=== PATIENT | male | born 1950 | race Caucasian/White ===

== ENCOUNTER → 2024-08-27 | Outpatient (CLI) | payer OTHER, SELFPAY ==
[2024-08-27 14:28] LABS: Basophils # (Auto) 0.1 Thou/mm3 (0.0-0.2); Basophils % (Auto) 1 % (0-2.5); Eosinophils # (Auto) 0.1 Thou/mm3 (0.0-0.5); Eosinophils % (Auto) 2 % (0-10); Hematocrit 46.2 % (41.0-53.0); Hemoglobin 15.5 g/dL (13.5-16.0); Immature Granulocytes % (Auto) 0 % (0-0); Immature Granulocytes Auto 0.03 Thou/mm3 (0.00-0.00); Lymphocytes # (Auto) 1.7 Thou/mm3 (1.0-4.8); Lymphocytes % (Auto) 23 % (10-50); Mean Corpuscular HGB Conc 33.5 g/dl (31.0-37.0); Mean Corpuscular Hemoglobin 31.8 pg (25.0-35.0); Mean Corpuscular Volume 95 fL (80-100); Monocytes # (Auto) 0.5 Thou/mm3 (0.0-0.8); Monocytes % (Auto) 7 % (0-12); Neutrophils # (Auto) 4.9 Thou/mm3 (1.8-7.7); Neutrophils % (Auto) 67 % (37-80); Nucleated Red Blood Cell % 0 /100 WBC (0); Platelet Count 160 Thou/mm3 (140-440); RDW Standard Deviation 47.6 fL (35.1-43.9); Red Blood Count 4.88 Miln/mm3 (4.50-5.90); White Blood Count 7.3 Thou/mm3 (3.8-10.6)
[2024-08-27 14:58] LABS: Anion Gap 7 (7-16); BUN/Creatinine Ratio 17 Ratio (12-20); Blood Urea Nitrogen 22 mg/dL (9-23); Calcium 9.6 mg/dL (8.3-10.6); Carbon Dioxide 31.5 mMol/L (20.0-31.0); Cardiac Risk Estimate 2.8 RATIO (4.0-6.7); Chloride 107 mMol/L (98-107); Cholesterol 136 mg/dL (132-200); Creatinine (Component) 1.3 mg/dL (0.6-1.3); Glucose 135 mg/dL (74-106); HDL Cholesterol 48 mg/dL (40-60); LDL Cholesterol,Calculated 66 mg/dL (0-130); Magnesium 2.1 mg/dL (1.6-2.6); Osmolality,Calculated 294 (275-295); Potassium 3.7 mMol/L (3.4-5.1); Sodium 145 mMol/L (136-145); Triglycerides 108 mg/dL (30-150); eGFR 58 See Note
== END | disposition home or self-care (01) ==
LOC: COPL 13:05
PROVIDERS: PCP Internal Medicine; Referring Provider Internal Medicine Cardiovascular Disease; Visit Provider Internal Medicine Cardiovascular Disease
DX: I11.0 Hypertensive heart disease with heart failure (principal); I50.22 Chronic systolic (congestive) heart failure; E78.5 Hyperlipidemia, unspecified
CPT/HCPCS: 36415; 80048; 80061; 83735; 85025

== ENCOUNTER 2024-12-02 18:33 | Emergency (ER) | payer OTHER, SELFPAY ==
[2024-12-02 18:33] VITALS: PULSE 115; RESP 20; O2SAT 97
[2024-12-02 18:42] VITALS: BP 122/86; PULSE 103; RESP 20; TEMP 36.8; O2SAT 96; BMI 28.7
[2024-12-02 19:16] VITALS: PULSE 115; RESP 20; O2SAT 97
--- NOTE | 2024-12-02 20:09 | XR_ITS ---
Examination: AP chest single view Technique one AP portable semiupright chest single view Date and time: December 02, 2024 2100 hours Comparison February 07, 2024 INDICATIONS: Shortness of breath today. FINDINGS: Normal heart size No lobar pneumonia No pulmonary edema Pulmonary nodule right upper lobe, at least 10 mm, please see the CT chest report February 02, 2024 IMPRESSION: No pneumonia or pulmonary edema 10 mm pulmonary nodule right upper lobe Please see the CT chest report February 02, 2024
[2024-12-02 20:39] LABS: Basophils # (Auto) 0.1 Thou/mm3 (0.0-0.2); Basophils % (Auto) 1 % (0-2.5); Eosinophils # (Auto) 0.1 Thou/mm3 (0.0-0.5); Eosinophils % (Auto) 1 % (0-10); Hematocrit 39.5 % (41.0-53.0); Hemoglobin 13.9 g/dL (13.5-16.0); Immature Granulocytes % (Auto) 0 % (0-0); Immature Granulocytes Auto 0.03 Thou/mm3 (0.00-0.00); Lymphocytes # (Auto) 1.7 Thou/mm3 (1.0-4.8); Lymphocytes % (Auto) 20 % (10-50); Mean Corpuscular HGB Conc 35.2 g/dl (31.0-37.0); Mean Corpuscular Hemoglobin 31.7 pg (25.0-35.0); Mean Corpuscular Volume 90 fL (80-100); Monocytes # (Auto) 0.8 Thou/mm3 (0.0-0.8); Monocytes % (Auto) 10 % (0-12); Neutrophils # (Auto) 5.7 Thou/mm3 (1.8-7.7); Neutrophils % (Auto) 68 % (37-80); Nucleated Red Blood Cell % 0 /100 WBC (0); Platelet Count 141 Thou/mm3 (140-440); RDW Standard Deviation 44.4 fL (35.1-43.9); Red Blood Count 4.38 Miln/mm3 (4.50-5.90); White Blood Count 8.3 Thou/mm3 (3.8-10.6)
[2024-12-02 21:08] LABS: Troponin I < 0.020 ng/mL (0.0-0.045)
[2024-12-02 21:21] LABS: B-Type Natriuretic Peptide 503 pg/mL (0-100)
[2024-12-02 22:05] VITALS: BP 131/105; PULSE 94; RESP 19; TEMP 36.6; O2SAT 96
--- NOTE | 2024-12-03 00:27 | PD.EDSOB ---
ED SOB =RME/HPI General Chief Complaint: Shortness of Breath/Dyspnea Stated Complaint: SOB Time Seen by Provider: 12/02/24 19:18 Arrival date/time: 12/02/24 18:33 Limitations: no limitations RME / HPI RME / HPI Narrative: Dr. Ball's Main ED Evaluation: 74yo male with a history of CVA, CAD s/p stent, CHF, HTN, HLD, COPD, aFib BIBA from home presents to the ED for a chief complaint of shortness of breath x 3-4 days. Patient states he was sick of it and was unable to tolerate his worsening shortness of breath, so he came in for evaluation. Patient reports having BLE swelling for months . Patient denies any fever, chills, N/V/D or any other associated symptoms. Related Data Home Medications ?Medication ?Instructions ?Recorded ?Confirmed atorvastatin 80 mg tablet 80 mg PO QDAY 12/15/18 04/23/22 Previous Rx's ?Medication ?Instructions ?Recorded apixaban 5 mg tablet (Eliquis) 5 mg PO BID #60 tabs 02/10/24 furosemide 40 mg tablet 40 mg PO QAM #30 tabs 02/11/24 metoprolol succinate 100 mg 100 mg PO BID #60 tabs 02/11/24 tablet,extended release 24 hr empagliflozin 10 mg tablet 10 mg PO QDAY #30 tabs 02/13/24 (Jardiance) Allergies Allergy/AdvReac Type Severity Reaction Status Date / Time bee venom protein (honey bee) Allergy Intermediate Anaphylaxis Verified 12/16/18 09:26 Review of Systems Review of Systems Systems Reviewed: All systems reviewed, normal except as documented Past Medical History Past Medical History NEUROLOGIC: Positive Cerebrovascular Accident; Negative Neurological Disorders CARDIAC: Positive Cardiac Disorders, Myocardial Infarction, Hypercholesterolemia and Hypertension; Negative Congestive Heart Failure RESPIRATORY: Positive Chronic Obstructive Pulmonary Disease (COPD); Negative Asthma GASTROINTESTINAL: Negative Gastrointestinal Disorders GENITOURINARY: Negative Genitourinary Disorders or Renal Disease MUSCULOSKELETAL: Positive Arthritis and Fractures; Negative Musculoskeletal Disorders ENDOCRINE: Negative Endocrine Disorders, Diabetes Mellitus Type 1 or Diabetes Mellitus Type 2 HEMATOLOGIC: Negative Blood Disorders or Sickle Cell Disease OTHER HISTORY: Positive Chicken Pox, Measles and Mumps; Negative Autoimmune Disease or Cancer Family History FAMILY HISTORY: Negative Family Neurologic Problems, Family Psychiatric Problems, Family Respiratory Disorders, Family Cardiac Disorders, Family Gastrointestinal Problems, Family Cancer, Family Surgery or Family Anesthesia Reaction Surgical History SURGICAL: Positive Coronary Stent Social History SMOKING STATUS: Current some day smoker SUBSTANCE USE: marijuana and amphetamines ED Exam General Limitations: Present no limitations General appearance: Present alert and in no apparent distress Head Head exam: Present atraumatic Eye Eye exam: Present normal appearance, PERRL and EOMI ENT ENT exam: Present normal exam, normal oropharynx and mucous membranes moist Neck Neck exam: Present normal inspection, full ROM and trachea midline Chest Chest inspection: Present normal inspection and symmetric chest wall rise Respiratory Respiratory exam: Present other (rhonchi bilaterally) Cardiovascular Cardiovascular exam: Present regular rate, normal rhythm and normal heart sounds Abdominal Exam Abdominal exam: Present soft and normal bowel sounds Extremities Exam Extremities exam: Present normal inspection and full ROM Back Exam Back exam: Present normal inspection and full ROM Neurological Exam Neurological exam: Present alert, oriented X3 and CN II-XII intact Psychiatric Psychiatric exam: Present normal affect and normal mood Skin Skin exam: Present warm, dry, intact and normal color Course Course Course Narrative: CXR is ordered for determining the etiology of shortness of breath. Quality Measures none Orders Category Date Time Status CXRP [XR chest 1V portable] Stat Exams 12/02/24 20:09 Completed BNP [B-Type Natriuretic Peptide] Stat Lab 12/02/24 20:21 Completed CBC Stat Lab 12/02/24 20:21 Completed Troponin I Stat Lab 12/02/24 20:21 Completed Troponin I Stat Lab 12/03/24 01:58 Completed Furosemide Inj [Lasix Inj] Med 12/03/24 01:17 Discontinued 40 mg IVP X1 ONE Reevaluation(s) Reevaluation #1: Patient is now asymptomatic at this time and feels significantly better. Patient states he urinated a lot . He is stable to be discharged home. Time: 05:00 Vital Signs Vital signs: Vital Signs Temperature 98.2 F 12/02/24 18:42 Pulse Rate 103 H 12/02/24 18:42 Respiratory Rate 20 12/02/24 18:42 Blood Pressure 122/86 H 12/02/24 18:42 Pulse Oximetry (%) 96 12/02/24 18:42 Oxygen Delivery Method Nasal Cannula 12/02/24 18:42 Oxygen Flow Rate 4 12/02/24 18:42 Shortness of Breath / Dyspnea MDM Narrative MDM Narrative:: Scribe Attestation: 12/03/24 - Lucy Esposito am scribing for and in the presence of Dr. Ball. Patient data External records reviewed:: [facility] previous records (Per chart review, patient was admitted here on 02/02/24 for aFib RVR.) Clinical information provided by:: patient and EMS Social determinants that could affect healthcare access:: none Patient has the following chronic illnesses:: CVA, CAD s/p stent, CHF, HTN, HLD, COPD, aFib How is presenting disease/condition affected by chronic disease/condition?: exacerbated by Evaluation data The following diagnostics were reviewed and interpreted by me:: lab results and radiology exam(s) Lab and/or radiology exams considered but not ordered:: none Interpretation Summary: CBC is normal, Initial and Repeat Troponins are normal, BNP 503, according to my interpretation. ---- [facility] Report Signed Patient: ADDY MONDRAGON [facility]. Record#: [id number] Birthdate: 1950 Age/Sex: 74 / M Location: [facility] Attending Dr: Ordering Physician: Karen Munroe MD Date of Service: 12/02/24 Procedure(s): XR chest 1V portable Accession Number(s): [id number] cc: Cash Shipley MD; Thomas Brooks MD; Karen Munroe MD~ Examination: AP chest single view Technique one AP portable semiupright chest single view Date and time: December 02, 2024 2100 hours Comparison February 07, 2024 INDICATIONS: Shortness of breath today. FINDINGS: Normal heart size No lobar pneumonia No pulmonary edema Pulmonary nodule right upper lobe, at least 10 mm, please see the CT chest report February 02, 2024 IMPRESSION: No pneumonia or pulmonary edema 10 mm pulmonary nodule right upper lobe Please see the CT chest report February 02, 2024 Dictated By: Thomas Brooks MD Signed By: <Electronically signed by Thomas Brooks MD in OV> 12/02/24 2856 Medications / Prescriptions Medications or Prescriptions considered but not ordered:: none Medication administrations:: Medication Administration History Discontinued Medications Furosemide (Furosemide Inj 10 Mg/Ml 4ml Vial) 40 mg IVP X1 ONE Stop: 12/03/24 01:18 Last Admin: 12/03/24 01:53 Dose: 40 mg Documented By: CG see above Consultations Consultation(s) initiated? (list below): No Diagnosis Shortness of Breath Differential Diagnosis: community acquired pneumonia, pulmonary embolism and other (CHF exacerbation, COPD exacerbation) Most likely diagnosis given after review of the tests above:: see clinical impression below Admission Indicated Admission indicated?: not indicated Admission Request Was there a request for admission?: No Disposition Plan Disposition Plan: Discharge Discharge Attestation Discharge Attestation: The patient and all family members were given an opportunity to ask questions and understood the discharge instructions. Discharge instructions specifically effects, indications for sooner follow up or return to the emergency department, and the expected course of current diagnosis. Patient condition: Stable Discharge Plan Plan Patient Disposition: HOME (Self Care) Patient condition on transfer: Stable Prescriptions/Referrals Prescriptions/Med Rec: No Action atorvastatin 80 mg Tablet 80 mg PO QDAY Eliquis 5 mg tablet 5 mg PO BID Qty: 60 0RF furosemide 40 mg tablet 40 mg PO QAM Qty: 30 0RF metoprolol succinate 100 mg tablet extended release 24 hr 100 mg PO BID Qty: 60 0RF Jardiance 10 mg tablet 10 mg PO QDAY Qty: 30 0RF Referrals: Cash Shipley MD [Primary Care Provider] - In 1 week Problem List Clinical Impression: Shortness of breath Patient/Caregiver Discharge Instructions Education Materials: ED Shortness of Breath (Dyspnea) Additional Instructions: Follow-up with your primary care provider in the next 48 hours. Continue taking your medications at home as prescribed. Return to the ED for any worsening symptoms or as needed. Print Language: Kosovan Stand Alone Forms: Debbie Award Info., Patient Portal Info Letter
[2024-12-03 01:53] VITALS: BP 120/86; PULSE 82
[2024-12-03] MEDS: FUROSEMIDE INJ 10 MG/ML 4ML VIAL 40 MG IVP (01:53)
[2024-12-03 02:48] LABS: Troponin I < 0.020 ng/mL (0.0-0.045)
[2024-12-03 02:49] VITALS: BP 146/95; PULSE 90; RESP 19; TEMP 36.5; O2SAT 95
[2024-12-03 04:56] VITALS: BP 125/99; PULSE 105; RESP 18; TEMP 36.5; O2SAT 98
[2024-12-03 06:44] VITALS: BP 113/88; PULSE 85; RESP 18; O2SAT 98
== END 2024-12-03 06:45 | disposition home or self-care (01) ==
PROVIDERS: Emergency Provider Emergency Medicine; PCP Internal Medicine
DX: R06.02 Shortness of breath (principal); R91.1 Solitary pulmonary nodule
CPT/HCPCS: 36415; 71045; 83880; 84484; 85025; 96374; 99284; J1938

== ENCOUNTER → 2024-12-24 | Outpatient (CLI) | payer OTHER, SELFPAY ==
[2024-12-24 12:07] LABS: Basophils # (Auto) 0.1 Thou/mm3 (0.0-0.2); Basophils % (Auto) 1 % (0-2.5); Eosinophils # (Auto) 0.1 Thou/mm3 (0.0-0.5); Eosinophils % (Auto) 2 % (0-10); Hematocrit 43.7 % (41.0-53.0); Hemoglobin 14.6 g/dL (13.5-16.0); Immature Granulocytes % (Auto) 1 % (0-0); Immature Granulocytes Auto 0.03 Thou/mm3 (0.00-0.00); Lymphocytes # (Auto) 1.3 Thou/mm3 (1.0-4.8); Lymphocytes % (Auto) 21 % (10-50); Mean Corpuscular HGB Conc 33.4 g/dl (31.0-37.0); Mean Corpuscular Hemoglobin 31.6 pg (25.0-35.0); Mean Corpuscular Volume 95 fL (80-100); Monocytes # (Auto) 0.7 Thou/mm3 (0.0-0.8); Monocytes % (Auto) 10 % (0-12); Neutrophils # (Auto) 4.3 Thou/mm3 (1.8-7.7); Neutrophils % (Auto) 67 % (37-80); Nucleated Red Blood Cell % 0 /100 WBC (0); Platelet Count 161 Thou/mm3 (140-440); RDW Standard Deviation 46.1 fL (35.1-43.9); Red Blood Count 4.62 Miln/mm3 (4.50-5.90); White Blood Count 6.5 Thou/mm3 (3.8-10.6)
[2024-12-24 12:19] LABS: Glucose Estimated Average 126 mg/dL (80-131)
--- NOTE | 2024-12-24 12:26 | XR_ITS ---
Examination: PA lateral chest 2 views TECHNIQUE: Upright PA lateral chest 2 views Date and time: December 24, 2024 1423 hours Comparison December 02, 2024 INDICATIONS: Shortness of breath beginning 2 months ago FINDINGS: Normal heart size Mild ectasia thoracic aorta. 15 mm pulmonary nodule right upper lobe, please see the CT chest report February 02, 2024 No pneumonia or pulmonary edema IMPRESSION: No pneumonia or pulmonary edema
[2024-12-24 12:31] LABS: Alanine Aminotransferase 24 U/L (10-49); Albumin, Serum 4.4 gm/dL (3.4-4.8); Alkaline Phosphatase 92 U/L (46-116); Anion Gap 8 (7-16); Aspartate Amino Transferase 20 U/L (0-34); BUN/Creatinine Ratio 22 Ratio (12-20); Bilirubin,Total 1.6 mg/dL (0.3-1.2); Blood Urea Nitrogen 26 mg/dL (9-23); Calcium 9.4 mg/dL (8.3-10.6); Calcium (Corrected) 9.4 mg/dL (8.5-10.1); Carbon Dioxide 31.7 mMol/L (20.0-31.0); Cardiac Risk Estimate 2.7 RATIO (4.0-6.7); Chloride 105 mMol/L (98-107); Cholesterol 118 mg/dL (132-200); Creatinine (Component) 1.2 mg/dL (0.6-1.3); Free T4 (Free Thyroxine) 1.55 ng/dL (0.89-1.76); Globulin 2.2 gm/dL (2.3-3.5); Glucose 139 mg/dL (74-106); HDL Cholesterol 44 mg/dL (40-60); LDL Cholesterol,Calculated 54 mg/dL (0-130); Osmolality,Calculated 295 (275-295); Potassium 3.8 mMol/L (3.4-5.1); Sodium 145 mMol/L (136-145); Thyroid Stimulating Hormone 6.24 uIU/mL (0.55-4.78); Total Protein 6.6 gm/dL (5.7-8.2); Triglycerides 99 mg/dL (30-150); Vitamin D 25 Hydroxy Total 23.2 ng/mL (7.3-40.2); eGFR > 60 See Note
[2024-12-24 12:33] LABS: B-Type Natriuretic Peptide 568 pg/mL (0-100)
== END | disposition home or self-care (01) ==
LOC: CDIM 11:29
PROVIDERS: PCP Internal Medicine; Referring Provider Internal Medicine; Visit Provider Internal Medicine
DX: R91.1 Solitary pulmonary nodule (principal); I77.810 Thoracic aortic ectasia
CPT/HCPCS: 36415; 71046; 80053; 80061; 82306; 83036; 83880; 84439; 84443; 85025

== ENCOUNTER 2025-01-28 17:49 | Emergency (ER) | payer OTHER, SELFPAY ==
[2025-01-28 17:54] VITALS: BP 111/77; PULSE 121; RESP 18; TEMP 36.6; O2SAT 94; BMI 28.7
[2025-01-28 18:08] VITALS: PULSE 115; RESP 14; O2SAT 97
[2025-01-28 18:15] VITALS: BMI 28.1
[2025-01-28 18:16] VITALS: BP 122/94; PULSE 107; RESP 13; TEMP 36.5; O2SAT 96
--- NOTE | 2025-01-28 18:27 | PD.EDSOB ---
ED SOB =RME/HPI General Chief Complaint: Shortness of Breath/Dyspnea Stated Complaint: SHORTNESS OF BREATH Time Seen by Provider: 01/28/25 18:35 Arrival date/time: 01/28/25 17:49 RME / HPI RME / HPI Narrative: This section includes all my notes and documentations, including HPI, PE, and ED course. Rene Marroquin MD HPI: 74 y/o male with Hx of [place], CVA, HTN, and COPD BIBA from home presents with worsening cough, productive cough, purulent sputum, and dyspnea. For about a week. Denies supplemental O2 at home. Denies fever and chest pain. No other complaints. ROS: All negative except as documented in HPI. Physical Exam: General: Alert and oriented. No acute distress noted. Eyes: Conjunctivae and lids clear. ENT: No nasal congestion. Neck: Supple. Heart: RRR. Lungs: No respiratory distress. Mildly decreased air movement with wheezing. Abdomen: Soft and nontender. Skin: Warm and dry. Neuro: Alert and oriented X 3. I reviewed EMS notes. I reviewed all diagnostic test results: My interpretation of the EKG is: Atrial fibrillation (91 bpm) with nonspecific ST-T changes. Rene Marroquin MD My interpretation of the chest x-ray is: NAD. My review of the Venous Doppler US report is: NAD. My review of the Chest CTA report is: NAD. Blood tests and urine tests unremarkable. Covid/Influenza: Negative. At this point, diagnoses include: COPD exacerbation. Treatment here included: Duoneb 3 mL, SoluMedrol 125 mg, Zithromax 250 mg, Rocephin 1G, and oral metoprolol 50 mg for high BP. Significant improvement noted. Recommended outpatient care. Based on my best medical judgment, made decision no further evaluation or treatment indicated at this time. Patient understands and agrees to the discharge instructions customized and printed, see below. Discharge instructions from Dr. Marroquin: --No physical exertion for 3 days to help rest the lungs. ?No smoking or exposure to smoking or pets or dust or cold or humidity. --Zithromax and cefdinir to kill the germs causing the COPD bronchitis. --Prednisone to help decrease the swelling in the airways. --Albuterol 2 puffs every 4-6 hours for 3 days to help keep the airways open. Then as needed for cough or shortness of breath. --See a private doctor on 01/31/2025 for recheck and further care. Ask to review all test results and official radiology reports, to make sure you receive all necessary follow-ups and monitoring. Ask for help until you are completely better. --Seek immediate medical care with worsening or with any concerns. Rene Marroquin MD Related Data Home Medications ?Medication ?Instructions ?Recorded ?Confirmed atorvastatin 80 mg tablet 80 mg PO QDAY 12/15/18 04/23/22 Previous Rx's ?Medication ?Instructions ?Recorded apixaban 5 mg tablet (Eliquis) 5 mg PO BID #60 tabs 02/10/24 furosemide 40 mg tablet 40 mg PO QAM #30 tabs 02/11/24 metoprolol succinate 100 mg 100 mg PO BID #60 tabs 02/11/24 tablet,extended release 24 hr empagliflozin 10 mg tablet 10 mg PO QDAY #30 tabs 02/13/24 (Jardiance) albuterol sulfate 90 mcg/actuation 2 puff inhalation Q6H PRN 01/28/25 aerosol inhaler shortness of breath or wheezing #8.5 grams azithromycin 500 mg tablet 500 mg PO QDAY 3 days #3 tabs 01/28/25 (Zithromax TRI-KRISTEL) cefdinir 300 mg capsule 300 mg PO BID #14 caps 01/28/25 prednisone 50 mg tablet 50 mg PO QDAY #3 tabs 01/28/25 Allergies Allergy/AdvReac Type Severity Reaction Status Date / Time bee venom protein (honey bee) Allergy Intermediate Anaphylaxis Verified 01/28/25 18:16 Review of Systems Review of Systems Systems Reviewed: All systems reviewed, normal except as documented Past Medical History Past Medical History NEUROLOGIC: Positive Cerebrovascular Accident CARDIAC: Positive Cardiac Disorders, Myocardial Infarction, Hypercholesterolemia and Hypertension RESPIRATORY: Positive Chronic Obstructive Pulmonary Disease (COPD) MUSCULOSKELETAL: Positive Arthritis and Fractures OTHER HISTORY: Positive Chicken Pox, Measles and Mumps Surgical History SURGICAL: Positive Coronary Stent Social History SUBSTANCE USE: marijuana and amphetamines ED Exam Narrative Physical exam: Refer to HPI Course Quality Measures none Orders Category Date Time Status Bedside COVID-19 Antigen Test NOW Care 01/28/25 18:42 Completed Bedside Influenza A&B Antigen Test NOW Care 01/28/25 18:[address] Screening NOW Care 01/28/25 20:14 Completed EKG (ED ONLY) *Do not use* NOW Care 01/28/25 18:43 Completed Saline [Insert IV] NOW Care 01/28/25 18:42 Completed Straight [In and Out Catheter] X1 Care 01/28/25 18:[address] angio chest Stat Exams 01/28/25 20:14 Completed EKG (ED Only) Stat Exams 01/28/25 18:43 Draft US venous doppler LE BI Stat Exams 01/28/25 20:14 Completed XR chest 1V portable Stat Exams 01/28/25 18:43 Completed ABG [Arterial Blood Gas] Stat Lab 01/28/25 19:43 Completed BNP [B-Type Natriuretic Peptide] Stat Lab 01/28/25 19:01 Completed Bilirubin,Direct Stat Lab 01/28/25 19:01 Completed Blood Culture (Lab) Stat Lab 01/28/25 19:01 Received CBC Stat Lab 01/28/25 19:01 Completed CMP [Comprehensive Metabolic Panel] Stat Lab 01/28/25 19:01 Completed CRP [C-Reactive Protein] Stat Lab 01/28/25 19:01 Completed D-Dimer Stat Lab 01/28/25 19:01 Completed ESR [Sed Rate (ESR)] Stat Lab 01/28/25 19:01 Completed Free T4 (Free Thyroxine) Stat Lab 01/28/25 19:01 Completed Lactate (Lactic Acid) Stat Lab 01/28/25 19:01 Completed Magnesium Stat Lab 01/28/25 19:01 Completed PT [Prothrombin Time with INR] Stat Lab 01/28/25 20:16 Completed PTT [Partial Thromboplastin Time] Stat Lab 01/28/25 20:16 Completed Procalcitonin Stat Lab 01/28/25 19:01 Completed TSH [Thyroid Stimulating Hormone] Stat Lab 01/28/25 19:01 Completed Troponin I Stat Lab 01/28/25 19:01 Completed UA, C/S IF [Urinalysis, C/S if Indicated] Stat Lab 01/28/25 20:55 Completed Albuterol/Ipratr Rt Jessica [Duoneb Rt Jessica] Med 01/28/25 18:42 Discontinued 3 ml INH X1 ONE Azithromycin Po [Zithromax PO] Med 01/28/25 22:54 Discontinued 500 mg PO X1 ONE MethylPREDNISolone.* [SoluMEDROL Inj] Med 01/28/25 18:42 Discontinued 125 mg IVP X1 ONE Metoprolol Tartrate [Lopressor] Med 01/29/25 00:09 Discontinued 50 mg PO X1 ONE cefTRIAXone/D5w 1gm IV premix [Rocephin/D5w 1gm IV Med 01/28/25 22:54 Discontinued premix] 1 gm in 50 ml IV X1 Vital Signs Vital signs: Vital Signs Temperature 97.8 F 01/28/25 17:54 Pulse Rate 121 H 01/28/25 17:54 Respiratory Rate 18 01/28/25 17:54 Blood Pressure 111/77 01/28/25 17:54 Pulse Oximetry (%) 94 L 01/28/25 17:54 Oxygen Delivery Method Nasal Cannula 01/28/25 17:54 Oxygen Flow Rate 2 01/28/25 17:54 Shortness of Breath / Dyspnea MDM Narrative MDM Narrative:: Scribe Attestation: IYeni, am scribing for and in the presence of Dr. Marroquin. Provider Notation: Although this document has been carefully reviewed, there may still be some phonetic and other typographical errors.? These errors are purely grammatical due to imperfections in the software program and should not be construed in any way to? compromise the substance of the patient's medical care during this visit. 74 y/o male with Hx of [place], CVA, HTN, and COPD BIBA from home presents with worsening cough, productive cough, purulent sputum, and dyspnea. For about a week. Denies supplemental O2 at home. Denies fever and chest pain. No other complaints. Patient data External records reviewed:: [facility] previous records (Reviewed prior ED records from 12/03/24. Patient was seen for Shortness of breath.) and EMS form Clinical information provided by:: patient and EMS Social determinants that could affect healthcare access:: none Patient has the following chronic illnesses:: Cerebrovascular Accident, Myocardial Infarction, Hypercholesterolemia, Hypertension, Chronic Obstructive Pulmonary Disease (COPD), Arthritis How is presenting disease/condition affected by chronic disease/condition?: exacerbated by Evaluation data The following diagnostics were reviewed and interpreted by me:: lab results, radiology exam(s) and EKG tracing(s) (My interpretation of the EKG is: Atrial fibrillation (91 bpm) with nonspecific ST-T changes. Rene Marroquin MD) Lab and/or radiology exams considered but not ordered:: None Interpretation Summary: I reviewed all diagnostic test results: My interpretation of the EKG is: Atrial fibrillation (91 bpm) with nonspecific ST-T changes. Rene Marroquin MD My interpretation of the chest x-ray is: NAD. My review of the Venous Doppler US report is: NAD. My review of the Chest CTA report is: NAD. Blood tests and urine tests unremarkable. Covid/Influenza: Negative. Medications / Prescriptions Medications or Prescriptions considered but not ordered:: None Medication administrations:: Medication Administration History Discontinued Medications Albuterol/Ipratropium (Albuterol/Ipratropium (Duoneb) Rt Jessica 3 Ml Nebu) 3 ml INH X1 ONE Stop: 01/28/25 18:43 Last Admin: 01/28/25 19:14 Dose: 3 ml Documented By: DM Azithromycin (Azithromycin 250 Mg Tablet) 500 mg PO X1 ONE Stop: 01/28/25 22:55 Last Admin: 01/28/25 23:35 Dose: 500 mg Documented By: DT Ceftriaxone Sodium/Dextrose (Rocephin/D5w 1gm Iv Premix) 1 gm in 50 mls @ 100 mls/hr IV X1 ONE Stop: 01/28/25 23:23 Last Infusion: 01/29/25 00:05 Dose: Infused Documented By: Admin: 01/28/25 23:37 Dose: 100 mls/hr Documented By: DT Methylprednisolone Sodium Succinate (Methylprednisolone Sod Succ 62.5 Mg/Ml 2ml Vial) 125 mg IVP X1 ONE Stop: 01/28/25 18:43 Last Admin: 01/28/25 19:24 Dose: 125 mg Documented By: GM Metoprolol Tartrate (Metoprolol Tartrate 25 Mg Tablet) 50 mg PO X1 ONE Stop: 01/29/25 00:10 Last Admin: 01/29/25 00:32 Dose: 50 mg Documented By: DT Treatment here included: Duoneb 3 mL, SoluMedrol 125 mg, Zithromax 250 mg, Rocephin 1G, and oral metoprolol 50 mg for high BP. Consultations Consultation(s) initiated? (list below): No Diagnosis Shortness of Breath Differential Diagnosis: acute exacerbation of chronic obstructive airways disease, congestive heart failure, community acquired pneumonia and pulmonary embolism Most likely diagnosis given after review of the tests above:: COPD Exacerbation Admission Indicated Admission indicated?: not indicated Explain why admission is indicated or not indicated:: With significant improvement and no condition needing emergent intervention, there was no indication for admission. Admission Request Was there a request for admission?: No Disposition Plan Disposition Plan: Discharge Discharge Attestation Discharge Attestation: The patient and all family members were given an opportunity to ask questions and understood the discharge instructions. Discharge instructions specifically effects, indications for sooner follow up or return to the emergency department, and the expected course of current diagnosis. Patient condition: Stable Discharge Plan Plan Patient Disposition: HOME (Self Care) Prescriptions/Referrals Prescriptions/Med Rec: New prednisone 50 mg tablet 50 mg PO QDAY Qty: 3 0RF albuterol sulfate 90 mcg/actuation HFA aerosol inhaler 2 puff inhalation Q6H PRN (Reason: shortness of breath or wheezing) Qty: 8.5 0RF cefdinir 300 mg capsule 300 mg PO BID Qty: 14 0RF azithromycin [Zithromax TRI-KRISTEL] 500 mg tablet 500 mg PO QDAY 3 Days Qty: 3 0RF No Action atorvastatin 80 mg Tablet 80 mg PO QDAY Eliquis 5 mg tablet 5 mg PO BID Qty: 60 0RF furosemide 40 mg tablet 40 mg PO QAM Qty: 30 0RF metoprolol succinate 100 mg tablet extended release 24 hr 100 mg PO BID Qty: 60 0RF Jardiance 10 mg tablet 10 mg PO QDAY Qty: 30 0RF Referrals: Cash Shipley MD [Primary Care Provider] - In 1 week Problem List Clinical Impression: COPD exacerbation Patient/Caregiver Discharge Instructions Discharge Activity: activity as tolerated Education Materials: ED COPD Flare Additional Instructions: Discharge instructions from Dr. Marroquin: --No physical exertion for 3 days to help rest the lungs. ?No smoking or exposure to smoking or pets or dust or cold or humidity. --Zithromax and cefdinir to kill the germs causing the COPD bronchitis. --Prednisone to help decrease the swelling in the airways. --Albuterol 2 puffs every 4-6 hours for 3 days to help keep the airways open. Then as needed for cough or shortness of breath. --See a private doctor on 01/31/2025 for recheck and further care. Ask to review all test results and official radiology reports, to make sure you receive all necessary follow-ups and monitoring. Ask for help until you are completely better. --Seek immediate medical care with worsening or with any concerns. Print Language: Upper Sorbian Stand Alone Forms: Debbie Award Info., Patient Portal Info Letter
--- NOTE | 2025-01-28 18:43 | EKG_ITS ---
[facility] Test Date: 2025-01-28 Pat Name: ADDY MONDRAGON Department: Room: - Gender: Male Education Managers: : 1950 Requested By: Rene Mckoy Order Number: [id number] Reading MD: Rene Mckoy Measurements Intervals [place] Rate: 91 P: TX: QRS: 23 QRSD: 106 T: 183 QT: 392 QTc: 483 Interpretive Statements ATRIAL FLUTTER/TACHYCARDIA ST DEVIATION AND MODERATE T-WAVE ABNORMALITY, CONSIDER ANTEROLATERAL ISCHEMIA [-0.1+ mV T-WAVE IN V3-V6] Compared to ECG 02/07/2024 12:11:32 T-wave abnormality now present Possible ischemia now present Atrial fibrillation no longer present Myocardial infarct finding no longer present /store/S0/[id number]/ecg/[id number].pdf
--- NOTE | 2025-01-28 18:43 | XR_ITS ---
Examination: AP chest single view TECHNIQUE: AP portable upright chest single view. Date and time: January 28, 2025 1910 hours. INDICATIONS: Chest pain and shortness of breath today. FINDINGS: Mild prominence of ventricle. Mild vascular congestion. No lobar pneumonia or pulmonary edema. Again noted 15 mm pulmonary nodule right upper lobe, please see the CT chest report February 02, 2024 IMPRESSION: No pneumonia or pulmonary edema
[2025-01-28] MEDS: ALBUTEROL/IPRATROPIUM (Duoneb) RT SOL 3 ML NEBU INH (19:14)
[2025-01-28 19:15] VITALS: PULSE 114; RESP 12; O2SAT 96
[2025-01-28 19:22] LABS: Lactate (Lactic Acid) 1.4 mMol/L (0.4-2.0)
[2025-01-28] MEDS: MethylPREDNISolone SOD SUCC 62.5 MG/ML 2ML VIAL 125 MG IVP (19:24)
[2025-01-28 19:34] LABS: Sed Rate (ESR) 21 mm/hr (0-20)
[2025-01-28 19:51] LABS: Base Excess 4 (-3-3); HCO3 26 mEq/L (20-26); Inspired Oxygen, FIO2 21 %; O2 Saturation 98 % (91-98); PCO2 31 mmHg (32.0-48.0); PO2 88 mmHg (83-108); pH, Arterial 7.54 (7.35-7.45)
[2025-01-28 19:52] LABS: Allen Test Performed/OK; Puncture Site Right Radial
[2025-01-28 19:56] LABS: D-Dimer 1130 ng/mL (<600)
[2025-01-28 20:11] LABS: Alanine Aminotransferase 35 U/L (10-49); Albumin, Serum 4.2 gm/dL (3.4-4.8); Albumin/Globulin Ratio 1.8 (1.2-2.2); Alkaline Phosphatase 102 U/L (46-116); Anion Gap 9 (7-16); Aspartate Amino Transferase 21 U/L (0-34); BUN/Creatinine Ratio 17 Ratio (12-20); Bilirubin,Direct 0.7 mg/dL (0.0-0.3); Bilirubin,Total 1.6 mg/dL (0.3-1.2); Blood Urea Nitrogen 19 mg/dL (9-23); Calcium 9.4 mg/dL (8.3-10.6); Calcium (Corrected) 9.4 mg/dL (8.5-10.1); Carbon Dioxide 28.5 mMol/L (20.0-31.0); Chloride 106 mMol/L (98-107); Creatinine (Component) 1.1 mg/dL (0.6-1.3); Estimated Creatinine Clearance 68.2 mL/min (>60); Free T4 (Free Thyroxine) 1.37 ng/dL (0.89-1.76); Globulin 2.4 gm/dL (2.3-3.5); Glucose 130 mg/dL (74-106); Magnesium 2.0 mg/dL (1.6-2.6); Osmolality,Calculated 289 (275-295); Potassium 3.6 mMol/L (3.4-5.1); Procalcitonin 0.06 ng/ml (0.0-0.49); Sodium 143 mMol/L (136-145); Thyroid Stimulating Hormone 3.10 uIU/mL (0.55-4.78); Total Protein 6.6 gm/dL (5.7-8.2); Troponin I < 0.020 ng/mL (0.0-0.045); eGFR > 60 See Note
--- NOTE | 2025-01-28 20:14 | XR_ITS ---
Examination: Venous duplex lower extremity sonogram, bilateral. Date and time of exam: January 28, 2025 202 hours INDICATIONS: Bilateral leg swelling beginning 2 weeks ago Technique: Multiple sonographic images of the deep venous system have been obtained. B-mode/2-D grayscale imaging of vascular structures and Doppler spectral analysis (waveforms) and color performed Both legs are examined. Findings: Deep venous systems do not demonstrate abnormal echogenicity. All visualized deep veins exhibit compressibility. All visualized deep veins exhibit augmentation. Impression: Negative for deep vein thrombosis
--- NOTE | 2025-01-28 20:14 | XR_ITS ---
Examination: CTA chest with intravenous contrast 2-D reconstructions 3-D reconstructions, vascular Date and time of exam: January 28, 2025 1006 hours Comparison February 02, 2024 INDICATIONS: Shortness of breath chest pain and elevated d-dimer today CTDI: vol (mGy) 18.59 DLP: (mGycm) 36 Technique: Multiple axial sections of the thorax have been obtained. 3 mm slice thickness, from below the hemidiaphragms to above the apices of the lungs. Mediastinal and lung density settings have been obtained. 2-D sagittal and coronal reconstructions. 3-D angiographic renderings, 3-D volume renderings, 3D post processing, vascular maximum intensity projections obtained. Contrast administered is 100 cc Isovue-370. Low dose protocols were performed. One or more of the following dose reduction techniques were used; automated exposure control, adjustment of the mA and/or KV according to patient size, use of iterative reconstruction technique. Findings: AP dimension ascending thoracic aorta 3.9 cm No pulmonary artery filling defects Mild to moderate enlargement cardiac contour Left anterior descending coronary artery calcification No mediastinal lymphadenopathy Stable 15 mm pulmonary nodule right upper lobe No pneumonia or pulmonary edema No visualized liver splenic lesion Partial visualization 5 cm upper pole left renal cyst IMPRESSION: Negative for pulmonary artery emboli No mediastinal lymphadenopathy. No pneumonia or pulmonary edema or pleural disease
[2025-01-28 20:21] LABS: B-Type Natriuretic Peptide 451 pg/mL (0-100)
[2025-01-28 20:22] LABS: Basophils # (Auto) 0.1 Thou/mm3 (0.0-0.2); Basophils % (Auto) 1 % (0-2.5); Eosinophils # (Auto) 0.1 Thou/mm3 (0.0-0.5); Eosinophils % (Auto) 2 % (0-10); Hematocrit 38.7 % (41.0-53.0); Hemoglobin 13.6 g/dL (13.5-16.0); Immature Granulocytes Auto 0.02 Thou/mm3 (0.00-0.00); Lymphocytes # (Auto) 1.6 Thou/mm3 (1.0-4.8); Lymphocytes % (Auto) 23 % (10-50); Mean Corpuscular HGB Conc 35.1 g/dl (31.0-37.0); Mean Corpuscular Hemoglobin 32.2 pg (25.0-35.0); Mean Corpuscular Volume 92 fL (80-100); Monocytes # (Auto) 0.8 Thou/mm3 (0.0-0.8); Monocytes % (Auto) 12 % (0-12); Neutrophils # (Auto) 4.3 Thou/mm3 (1.8-7.7); Neutrophils % (Auto) 63 % (37-80); Nucleated Red Blood Cell # 0.00 Thou/mm3 (0.00-0.00); Nucleated Red Blood Cell % 0 /100 WBC (0); Platelet Count 127 Thou/mm3 (140-440); RDW Standard Deviation 44.7 fL (35.1-43.9); Red Blood Count 4.23 Miln/mm3 (4.50-5.90); White Blood Count 6.9 Thou/mm3 (3.8-10.6)
[2025-01-28 21:01] LABS: INR 1.1 (0.9-1.3); Partial Thromboplastin Time 30.2 Seconds (22.0-36.0); Prothrombin Time 11.9 Seconds (9.0-12.2)
[2025-01-28 21:35] LABS: C-Reactive Protein 0.5 mg/dL (0.0-0.9)
[2025-01-28 21:39] LABS: Collection Type, Urine Clean Catch
[2025-01-28 22:00] LABS: Bilirubin,Urine Negative (Negative); Blood,Urine Negative (Negative); Clarity,Urine Clear (Clear/Hazy); Color,Urine Yellow (Lt Yel-Yel); Culture Indicated,Urine Not Indicated; Glucose, Urine Negative (Negative); Hyaline Casts,Urine < 1 /hpf (0-1); Ketones,Urine Negative (Negative); Leukocyte Esterase,Urine Negative (Negative); Nitrite,Urine Negative (Negative); PH,Urine 6.0 (5.0-7.0); Protein,Urine Negative (Neg - Trace); RBC,Urine 3 /hpf (0-3); Specific Gravity,Urine 1.019 (1.001-1.035); Squamous Epithelial Cell,Urine < 1 /hpf (0-5); Urobilinogen,Urine 6.0 mg/dL (0.0-1.0); WBC,Urine 1 /hpf (0-5)
[2025-01-28 22:28] VITALS: BP 141/110; PULSE 116; RESP 16; TEMP 36.4; O2SAT 96
[2025-01-28] MEDS: AZITHROMYCIN 250 MG TABLET 500 MG PO (23:35)
[2025-01-28] MEDS: cefTRIAXone/D5w 1gm IV premix 1 GM/50 ML BAG IV (23:37)
[2025-01-29 00:07] VITALS: BP 139/118; PULSE 117; RESP 18; TEMP 36.4; O2SAT 95
--- NOTE | 2025-01-29 00:10 | PC.NURSE ---
DR. ROBERTSON MADE AWARE OF PT BLOOD PRESSURE AND HEART RATE. VERBAL ORDER RECEIVED FOR METOPROLOL 50MG PO X1.
[2025-01-29 00:32] VITALS: BP 147/118; PULSE 116
[2025-01-29] MEDS: METOPROLOL TARTRATE 25 MG TABLET 50 MG PO (00:32)
[2025-01-29 01:48] VITALS: BP 141/108; PULSE 111; RESP 18; O2SAT 96
== END 2025-01-29 01:53 | disposition home or self-care (01) ==
PROVIDERS: Emergency Provider Emergency Medicine; PCP Internal Medicine
DX: J44.1 Chronic obstructive pulmonary disease with (acute) exacerbation (principal); M79.89 Other specified soft tissue disorders; R94.31 Abnormal electrocardiogram [ECG] [EKG]
CPT/HCPCS: 36415; 36600; 71045; 71275; 80053; 81001; 82248; 82803; 83605; 83735; 83880; 84145; 84439; 84443; 84484; 85025; 85379; 85610; 85652; 85730; 86140; 87040; 87400; 87811; 93005; 93970; 94640; 96365; 96374; 99283; A4649; A9270; J0696; J2919; Q9967

== ENCOUNTER 2025-05-07 16:01 | Emergency (ER) | payer OTHER, SELFPAY ==
[2025-05-07 16:07] VITALS: BP 127/93; PULSE 136; RESP 20; TEMP 36.7; O2SAT 94; BMI 27.8
--- NOTE | 2025-05-07 16:13 | EKG_ITS ---
[facility] Test Date: 2025-05-07 Pat Name: ADDY MONDRAGON Department: Room: - Gender: Male Supervisor Grading: : [phone] Requested By: Rickie Michel Order Number: [id number] Reading MD: Rickie Michel Measurements Intervals [place]ge[place] Rate: 133 P: MT: QRS: 45 QRSD: 123 T: 184 QT: 349 QTc: 520 Interpretive Statements ATRIAL FLUTTER/TACHYCARDIA WITH RAPID VENTRICULAR RESPONSE MODERATE INTRAVENTRICULAR CONDUCTION DELAY [110+ ms QRS DURATION] ST DEVIATION AND MODERATE T-WAVE ABNORMALITY, CONSIDER LATERAL ISCHEMIA [-0.1+ mV T-WAVE IN I/aVL/V5/V6] Compared to ECG 01/28/2025 18:04:54 Intraventricular conduction delay now present T-wave abnormality still present Possible ischemia still present /store/S0/[id number]/ecg/[id number].pdf
--- NOTE | 2025-05-07 16:13 | XR_ITS ---
EXAMINATION: AP chest single view TECHNIQUE: AP portable semiupright chest single view Date and time: May 07, 2025, 1714 hours, comparison January 28, 2025 INDICATIONS: Shortness of breath today. FINDINGS: Mild heart failure. Mild enlargement cardiac contour Prominent vascular congestion, suspicious for early edema of the lung bases The osseous structures are intact IMPRESSION: Early heart failure
--- NOTE | 2025-05-07 16:14 | PD.EDADULT ---
ED General RME/HPI General Chief complaint: Shortness of Breath/Dyspnea Stated complaint: SOB Time Seen by Provider: 05/07/25 16:12 Arrival date/time: 05/07/25 16:01 CC: Shortness of breath HPI onset approximately 1 hour ago. Patient stated he is shortness of breath came with cough and he has been coughing up yellow to white phlegm. EMS report oxygen saturations of 94%. The patient stopped smoking 1 year ago. Patient denies chest pain difficulty breathing fever. No other complaints EMS reports 4 L oxygen when administered which improved his oxygen saturations to 94% and the patient feels better . Related Data Home Medications ?Medication ?Instructions ?Recorded ?Confirmed atorvastatin 80 mg tablet 80 mg PO QDAY 12/15/18 04/23/22 Previous Rx's ?Medication ?Instructions ?Recorded apixaban 5 mg tablet (Eliquis) 5 mg PO BID #60 tabs 02/10/24 furosemide 40 mg tablet 40 mg PO QAM #30 tabs 02/11/24 metoprolol succinate 100 mg 100 mg PO BID #60 tabs 02/11/24 tablet,extended release 24 hr empagliflozin 10 mg tablet 10 mg PO QDAY #30 tabs 02/13/24 (Jardiance) albuterol sulfate 90 mcg/actuation 2 puff inhalation Q6H PRN 01/28/25 aerosol inhaler shortness of breath or wheezing #8.5 grams cefdinir 300 mg capsule 300 mg PO BID #14 caps 01/28/25 prednisone 50 mg tablet 50 mg PO QDAY #3 tabs 01/28/25 furosemide 40 mg tablet (Lasix) 40 mg PO QAM #20 tabs 05/07/25 Allergies Allergy/AdvReac Type Severity Reaction Status Date / Time bee venom protein (honey bee) Allergy Intermediate Anaphylaxis Verified 05/07/25 16:41 Review of Systems Review of Systems Narrative Review of Systems: GEN: No fever, no chills, no weight loss EYES: No discharge, no visual changes, no pain HEENT: No ear pain, no congestion, no sore throat PULM: + shortness of breath, no cough, no congestion CV: No chest pain, no dyspnea on exertion, no palpitations GI: No nausea, no vomiting, no diarrhea, no pain, no constipation : No frequency, no urgency, no dysuria MUSC/SKEL: No joint pain, no back pain SKIN: No rash PSYCH: No hallucinations, no depression HEME/LYMPH: No easy bleeding or bruising tendencies NEURO: No weakness, no headache Past Medical History Past Medical History NEUROLOGIC: Positive Cerebrovascular Accident; Negative Neurological Disorders CARDIAC: Positive Cardiac Disorders, Myocardial Infarction, Hypercholesterolemia and Hypertension; Negative Congestive Heart Failure RESPIRATORY: Positive Chronic Obstructive Pulmonary Disease (COPD) and Asthma (copd) GASTROINTESTINAL: Negative Gastrointestinal Disorders GENITOURINARY: Negative Genitourinary Disorders or Renal Disease MUSCULOSKELETAL: Positive Arthritis and Fractures; Negative Musculoskeletal Disorders ENDOCRINE: Negative Endocrine Disorders, Diabetes Mellitus Type 1 or Diabetes Mellitus Type 2 HEMATOLOGIC: Negative Blood Disorders or Sickle Cell Disease OTHER HISTORY: Positive Chicken Pox, Measles and Mumps; Negative Autoimmune Disease or Cancer Family History FAMILY HISTORY: Negative Family Neurologic Problems, Family Psychiatric Problems, Family Respiratory Disorders, Family Cardiac Disorders, Family Gastrointestinal Problems, Family Cancer, Family Surgery or Family Anesthesia Reaction Surgical History SURGICAL: Positive Coronary Stent Social History SMOKING STATUS: Never smoker SUBSTANCE USE: marijuana and amphetamines ED Exam Narrative Physical exam: [General: Obese not in cot no acute distress Head normocephalic HEENT: Eyes pupils are PERRLA EOMs are intact mouth pink dry membranes uvula is midline swallow symmetrical phonation is normal all the substance of HEENT are within acceptable limits Neck is supple nontender Chest equal chest rise nontender to palpation Respiratory: Clear to auscultation no wheezes crackles or rubs CV: Rate rhythm is regular no murmurs rubs or clicks Abdomen is soft nontender no masses positive bowel sounds all 4 quadrants Back: No CVA tenderness no spinous process tenderness from cervical spine thoracic and lumbar spine Skin: Intact no petechiae rash induration ulceration or crepitus Extremities: Moving all extremity against resistance cap refill less than 2 seconds neurosensory intact Neuro: Awake alert oriented x3 Glascow coma 15 no focal deficits] Course Course Course Narrative: Patient progressively admits he ran out of his Lasix and stated shortness of breath. Oxygen saturations remained at 100% on room air for the past hour and a half at this time patient will be discharged home with Lasix. Quality Measures none Orders Category Date Time Status EKG (ED ONLY) *Do not use* NOW Care 05/07/25 16:13 Completed EKG (ED Only) Stat Exams 05/07/25 16:13 Draft XR chest 1V Stat Exams 05/07/25 16:13 Completed B-Type Natriuretic Peptide Stat Lab 05/07/25 16:46 Completed CBC Stat Lab 05/07/25 16:46 Completed Comprehensive Metabolic Panel Stat Lab 05/07/25 16:46 Completed Drug Screen,Urine Stat Lab 05/07/25 18:35 Completed LDH (Lactate Dehydrogenase) Stat Lab 05/07/25 16:46 Completed Magnesium Stat Lab 05/07/25 16:46 Completed Partial Thromboplastin Time Stat Lab 05/07/25 16:46 Completed Prothrombin Time with INR Stat Lab 05/07/25 16:46 Completed Troponin I Stat Lab 05/07/25 16:46 Completed Urinalysis, C/S if Indicated Stat Lab 05/07/25 18:35 Completed VBG [Venous Blood Gas] Stat Lab 05/07/25 16:46 Completed Albuterol/Ipratr Rt Jessica [Duoneb Rt Jessica] Med 05/07/25 16:25 Discontinued 3 ml INH X1 ONE Furosemide [Lasix Inj] Med 05/07/25 18:26 Discontinued 20 mg IVP X1 ONE Vital Signs Vital signs: Vital Signs Temperature 98.0 F 05/07/25 16:07 Pulse Rate 136 H 05/07/25 16:07 Respiratory Rate 20 05/07/25 16:07 Blood Pressure 127/93 H 05/07/25 16:07 Pulse Oximetry (%) 94 L 05/07/25 16:07 Oxygen Delivery Method Room Air 05/07/25 16:07 Discharge Plan Plan Patient Disposition: HOME (Self Care) Patient condition on transfer: Stable Prescriptions/Referrals Prescriptions/Med Rec: New furosemide [Lasix] 40 mg tablet 40 mg PO QAM Qty: 20 0RF No Action atorvastatin 80 mg Tablet 80 mg PO QDAY Eliquis 5 mg tablet 5 mg PO BID Qty: 60 0RF furosemide 40 mg tablet 40 mg PO QAM Qty: 30 0RF metoprolol succinate 100 mg tablet extended release 24 hr 100 mg PO BID Qty: 60 0RF Jardiance 10 mg tablet 10 mg PO QDAY Qty: 30 0RF prednisone 50 mg tablet 50 mg PO QDAY Qty: 3 0RF albuterol sulfate 90 mcg/actuation HFA aerosol inhaler 2 puff inhalation Q6H PRN (Reason: shortness of breath or wheezing) Qty: 8.5 0RF cefdinir 300 mg capsule 300 mg PO BID Qty: 14 0RF Referrals: Chandana Macdonald MD [Physician, Family Practice] - In 1 week No Primary/Family,Physician [Primary Care Provider] - In 1 week Problem List Clinical Impression: CHF (congestive heart failure), Hx of medication noncompliance Patient/Caregiver Discharge Instructions Education Materials: Heart Failure Dc Additional Instructions: Follow-up with your primary care doctor you need to stay on all your medications because of your heart condition. Print Language: Spanish Stand Alone Forms: Debbie Award Info., Work/School Release, Patient Portal Info Letter PA/SENIOR BIOINFORMATICS SPECIALIST Supervising Physician PA/ANDIE Supervising Physician: Rickie Tang ENP [facility] Clinical Information Provided by: patient and EMS Medical Records reviewed [facility] and EMS Meds/Rx considered, not ordered None Labs/Rad/Tests considered, not ordered None Chronic Illness/Social Conditions Explain: Hypertension stroke hyperlipidemia A-fib EKG Interpretation EKG #1: EKG Interpretation: EKG performed at 1710 shows a ventricular rate of 133 QRS of 123 QT QTc of 427 this is a flutter. When compared to an old EKG of both 2023 and 2024 there is no significant changes Labs Labs: interpreted by ct Lab(s) Interpretation(s): VBG shows a pH of 7.36 pCO2 of 47 pO2 of 36 O2 sats of 66% and base excess of 1 CMP shows no significant electrolyte imbalances other than elevated glucose at 161 no transaminitis T. bili at 2.1. Troponin at less than 0.020 BNP 1781. Medication Administration(s) Medication Administration History Discontinued Medications Albuterol/Ipratropium (Albuterol/Ipratropium (Duoneb) Rt Jessica 3 Ml Nebu) 3 ml INH X1 ONE Stop: 05/07/25 16:26 Last Admin: 05/07/25 16:45 Dose: 3 ml Documented By: LAURA Furosemide (Furosemide Inj 10 Mg/Ml Vial 2 Ml) 20 mg IVP X1 ONE Stop: 05/07/25 18:27 Last Admin: 05/07/25 18:45 Dose: 20 mg Documented By: VINCENT
[2025-05-07 16:35] VITALS: PULSE 130; RESP 30; O2SAT 84
[2025-05-07] MEDS: ALBUTEROL/IPRATROPIUM (Duoneb) RT SOL 3 ML NEBU INH (16:45)
[2025-05-07 16:49] VITALS: PULSE 134; RESP 22; O2SAT 99
[2025-05-07 16:53] LABS: Base Excess, Venous 1 (-3-3); O2 Saturation, Venous 66 % (96-97); PCO2, Venous 47 mmHg (36-56); PO2, Venous 36 mmHg (15-58); pH, Venous 7.36 (7.33-7.66)
[2025-05-07 16:58] LABS: Basophils # (Auto) 0.1 Thou/mm3 (0.0-0.2); Basophils % (Auto) 1 % (0-2.5); Eosinophils # (Auto) 0.0 Thou/mm3 (0.0-0.5); Eosinophils % (Auto) 0 % (0-10); Hematocrit 40.4 % (41.0-53.0); Hemoglobin 13.8 g/dL (13.5-16.0); Immature Granulocytes Auto 0.04 Thou/mm3 (0.00-0.00); Lymphocytes # (Auto) 1.5 Thou/mm3 (1.0-4.8); Lymphocytes % (Auto) 15 % (10-50); Mean Corpuscular HGB Conc 34.2 g/dl (31.0-37.0); Mean Corpuscular Hemoglobin 31.5 pg (25.0-35.0); Mean Corpuscular Volume 92 fL (80-100); Monocytes # (Auto) 0.9 Thou/mm3 (0.0-0.8); Monocytes % (Auto) 9 % (0-12); Neutrophils # (Auto) 7.6 Thou/mm3 (1.8-7.7); Neutrophils % (Auto) 75 % (37-80); Nucleated Red Blood Cell # 0.00 Thou/mm3 (0.00-0.00); Nucleated Red Blood Cell % 0 /100 WBC (0); Platelet Count 127 Thou/mm3 (140-440); RDW Standard Deviation 47.6 fL (35.1-43.9); Red Blood Count 4.38 Miln/mm3 (4.50-5.90); White Blood Count 10.2 Thou/mm3 (3.8-10.6)
[2025-05-07 17:13] LABS: Alanine Aminotransferase 21 U/L (10-49); Albumin, Serum 4.5 gm/dL (3.4-4.8); Albumin/Globulin Ratio 2.3 (1.2-2.2); Alkaline Phosphatase 93 U/L (46-116); Anion Gap 9 (7-16); Aspartate Amino Transferase 20 U/L (0-34); B-Type Natriuretic Peptide 1781 pg/mL (0-100); BUN/Creatinine Ratio 16 Ratio (12-20); Bilirubin,Total 2.1 mg/dL (0.3-1.2); Blood Urea Nitrogen 18 mg/dL (9-23); Calcium 9.2 mg/dL (8.3-10.6); Calcium (Corrected) 9.2 mg/dL (8.5-10.1); Carbon Dioxide 27.1 mMol/L (20.0-31.0); Chloride 107 mMol/L (98-107); Creatinine (Component) 1.1 mg/dL (0.6-1.3); Estimated Creatinine Clearance 69.9 mL/min (>60); Globulin 2.0 gm/dL (2.3-3.5); Glucose 161 mg/dL (74-106); LDH (Lactate Dehydrogenase) 188 U/L (120-246); Magnesium 2.3 mg/dL (1.6-2.6); Osmolality,Calculated 289 (275-295); Potassium 4.6 mMol/L (3.4-5.1); Sodium 143 mMol/L (136-145); Total Protein 6.5 gm/dL (5.7-8.2); Troponin I < 0.020 ng/mL (0.0-0.045); eGFR > 60 See Note
[2025-05-07 17:23] LABS: INR 1.1 (0.9-1.3); Partial Thromboplastin Time 29.9 Seconds (22.0-36.0); Prothrombin Time 11.3 Seconds (9.0-12.2)
[2025-05-07 18:34] VITALS: BP 129/107; PULSE 107; RESP 20; O2SAT 96
[2025-05-07 18:45] VITALS: BP 129/107; PULSE 107
[2025-05-07] MEDS: FUROSEMIDE INJ 10 MG/ML VIAL 2 ML 20 MG IVP (18:45)
[2025-05-07 18:59] LABS: Collection Type, Urine Clean Catch; Squamous Epithelial Cell,Urine 0 /hpf (0-5)
[2025-05-07 19:05] LABS: Bilirubin,Urine Negative (Negative); Blood,Urine 1+ (Negative); Clarity,Urine Clear (Clear/Hazy); Color,Urine Yellow (Lt Yel-Yel); Culture Indicated,Urine Not Indicated; Glucose, Urine Trace (Negative); Ketones,Urine Negative (Negative); Leukocyte Esterase,Urine Negative (Negative); Nitrite,Urine Negative (Negative); PH,Urine 6.0 (5.0-7.0); Protein,Urine Trace (Neg - Trace); RBC,Urine 2 /hpf (0-3); Specific Gravity,Urine 1.023 (1.001-1.035); Urobilinogen,Urine 3.0 mg/dL (0.0-1.0); WBC,Urine < 1 /hpf (0-5)
[2025-05-07 19:14] LABS: Amphetamine/Methamp Scrn,U Negative (Negative); Barbiturate Screen,Urine Negative (Negative); Benzodiazepines Screen,Urine Negative (Negative); Benzoylecgonine Screen, Ur Negative (Negative); Fentanyl Screen,Urine Negative (Negative); Opiate Screen,Urine Negative (Negative); THC Screen,Urine Negative (Negative)
== END 2025-05-07 20:13 | disposition home or self-care (01) ==
PROVIDERS: Registered Nurse General Practice; Emergency Provider Emergency Medicine
DX: I11.0 Hypertensive heart disease with heart failure (principal); E78.5 Hyperlipidemia, unspecified; I48.91 Unspecified atrial fibrillation; I48.92 Unspecified atrial flutter; I50.9 Heart failure, unspecified; Z79.01 Long term (current) use of anticoagulants; Z87.891 Personal history of nicotine dependence
CPT/HCPCS: 36415; 71045; 80053; 80307; 81001; 82803; 83615; 83735; 83880; 84484; 85025; 85610; 85730; 93005; 94640; 96374; 99283; A9270; J1938